=== PATIENT | male | born 1995 | race African-American/Black ===

== ENCOUNTER 2016-10-23 17:59 | Emergency (ER) | payer SELFPAY ==
[~2016-10-23] VITALS: Ht 185.4 cm; Wt 65.0 kg
[~2016-10-23 17:59] MED LIST: NAPR500 PO; PENI500T PO
[2016-10-23 18:02] VITALS: BP 127/62; PULSE 70; RESP 14; TEMP 98; O2SAT 99
[2016-10-23 19:01] VITALS: BP 127/89; PULSE 88; RESP 18; O2SAT 99
--- NOTE | 2016-10-23 19:58 | PD ---
HPI Chief Complaint: Psychiatric Symptoms Time Seen by Provider: 19:48 Travel History International Travel<30 days: No Contact w/Intl Traveler<30days: No Traveled to known affect area: No History of Present Illness HPI This is a 21-year-old male who presents requesting psychiatric evaluation. Reports that 2 weeks ago he used some hallucinogenic drugs with a woman. Afterwards he began having feelings that she was calling him things that he has been afraid of for most of his life. He has been having these lingering feeling since then. He has also been having some paranoia, occasionally he feels like he is being followed. For this reason he presents requesting voluntary psychiatric evaluation. He denies any suicidal or homicidal ideation. He has no other complaints at This time. [facility] Past Medical History Developmental Delay: No Diminished Hearing: No Immunizations Current: Yes Pneumonia: Yes Social History Alcohol Use: Yes (WEEKLY) Tobacco Use: Yes (BLACK AND MILDS 1-2 PER DAY) Substance Use: Yes (MARIJUIANA) Allergies-Medications (Allergen,Severity, Reaction): Coded Allergies: No Known Allergies (Verified , 03/02/16) Reported Meds & Prescriptions Reported Meds & Active Scripts Active Naprosyn (Naproxen) 500 Mg Tab 500 Mg PO Q12HR PRN Pen Vk (Penicillin V Potassium) 500 Mg Tab 500 Mg PO QID 10 Days Review of Systems Except as stated in HPI: all other systems reviewed are Neg Physical Exam Narrative GENERAL: Well-developed well-nourished male in no acute distress. SKIN: Warm and dry. HEAD: Atraumatic. Normocephalic. EYES: Pupils equal and round. No scleral icterus. No injection or drainage. ENT: No nasal bleeding or discharge. Mucous membranes pink and moist. NECK: Trachea midline. No JVD. CARDIOVASCULAR: Regular rate and rhythm. No murmur appreciated. RESPIRATORY: No accessory muscle use. Clear to auscultation. Breath sounds equal bilaterally. GASTROINTESTINAL: Abdomen soft, non-tender, nondistended. Hepatic and splenic margins not palpable. MUSCULOSKELETAL: No obvious deformities. No clubbing. No cyanosis. No edema. NEUROLOGICAL: Awake and alert. No obvious cranial nerve deficits. Motor grossly within normal limits. Normal speech. PSYCHIATRIC: Somewhat anxious in appearance; insight and judgment normal. Data Data Last Documented VS Vital Signs Date Time Temp Pulse Resp B/P Pulse Ox O2 Delivery O2 Flow Rate FiO2 10/23/16 19:01 88 18 127/89 99 Room Air 10/23/16 18:02 98.0 Orders Complete Blood Count With Diff (10/23/16 19:37) Comprehensive Metabolic Panel (10/23/16 19:37) Psych Screen (10/23/16 19:37) Drug Screen, Random Urine (10/23/16 19:37) Alcohol (Ethanol) (10/23/16 19:37) Labs Laboratory Tests Test 10/23/16 20:00 White Blood Count 6.4 TH/MM3 Red Blood Count 5.35 MIL/MM3 Hemoglobin 14.8 GM/DL Hematocrit 45.3 % Mean Corpuscular Volume 84.7 FL Mean Corpuscular Hemoglobin 27.7 PG Mean Corpuscular Hemoglobin 32.7 % Concent Red Cell Distribution Width 13.5 % Platelet Count 251 TH/MM3 Mean Platelet Volume 7.7 FL Neutrophils (%) (Auto) 45.0 % Lymphocytes (%) (Auto) 44.0 % Monocytes (%) (Auto) 8.3 % Eosinophils (%) (Auto) 2.3 % Basophils (%) (Auto) 0.4 % Neutrophils # (Auto) 2.9 TH/MM3 Lymphocytes # (Auto) 2.8 TH/MM3 Monocytes # (Auto) 0.5 TH/MM3 Eosinophils # (Auto) 0.1 TH/MM3 Basophils # (Auto) 0.0 TH/MM3 CBC Comment DIFF FINAL Differential Comment Sodium Level 134 MEQ/L Potassium Level 3.5 MEQ/L Chloride Level 99 MEQ/L Carbon Dioxide Level 30.3 MEQ/L Anion Gap 5 MEQ/L Blood Urea Nitrogen 14 MG/DL Creatinine 1.19 MG/DL Estimat Glomerular Filtration 92 ML/MIN Rate Random Glucose 93 MG/DL Calcium Level 9.0 MG/DL Total Bilirubin 0.3 MG/DL Aspartate Amino Transf 24 U/L (AST/SGOT) Alanine Aminotransferase 19 U/L (ALT/SGPT) Alkaline Phosphatase 61 U/L Total Protein 7.9 GM/DL Albumin 4.2 GM/DL Urine Opiates Screen NEG Urine Barbiturates Screen NEG Urine Amphetamines Screen NEG Urine Benzodiazepines Screen NEG Urine Cocaine Screen NEG Urine Cannabinoids Screen POS Ethyl Alcohol Level LESS THAN 3 MG/DL MDM Medical Decision Making Medical Screen Exam Complete: Yes Emergency Medical Condition: Yes Medical Record Reviewed: Yes Differential Diagnosis Substance induced mood disorder, acute psychosis, schizophrenia, major depressive disorder Narrative Course 21-year-old male presents voluntarily requesting psychiatric evaluation. Mental health screening discussed with the patient. Psychiatric screen ordered. Drug screen positive for cannabinoids. Medically cleared for psychiatric disposition. Diagnosis Primary Impression: ParanBrice Gandara Oct 23, 2016 19:58
[2016-10-23 20:20] LABS: AUTOMATED NEUTROPHIL # 2.9 TH/MM3 (1.8-7.7); BASOPHIL % 0.4 % (0.0-2.0); EOSINOPHIL # 0.1 TH/MM3 (0-0.4); EOSINOPHIL % 2.3 % (0.0-4.0); HEMATOCRIT 45.3 % (39.0-51.0); HEMO FLAGS DIFF FINAL; LYMPHOCYTE # 2.8 TH/MM3 (1.0-4.8); MEAN CELL VOLUME 84.7 FL (80.0-100.0); MEAN CORPUSCULAR HEMOGLOBIN 27.7 PG (27.0-34.0); MEAN CORPUSCULAR HGB CONC 32.7 % (32.0-36.0); MONO % 8.3 % (0.0-8.0); PLATELET COUNT 251 TH/MM3 (150-450); RED BLOOD COUNT 5.35 MIL/MM3 (4.50-5.90); RED CELL DISTRIBUTION WIDTH 13.5 % (11.6-17.2); WHITE BLOOD COUNT 6.4 TH/MM3 (4.0-11.0)
[2016-10-23 20:34] LABS: ANION GAP 5 MEQ/L (5-15); AST (GOT) 24 U/L (15-37); BICARBONATE 30.3 MEQ/L (21.0-32.0); BLOOD UREA NITROGEN 14 MG/DL (7-18); CHLORIDE 99 MEQ/L (98-107); GLOMERULAR FILTRATION RATE 92 ML/MIN (>89); POTASSIUM 3.5 MEQ/L (3.5-5.1); SODIUM (NA) 134 MEQ/L (136-145)
[2016-10-23 20:35] LABS: ALCOHOL LESS THAN 3 MG/DL (0-5); ALT (GPT) 19 U/L (12-78)
[2016-10-23 20:37] LABS: ALKALINE PHOSPHATASE 61 U/L (45-117); TOTAL BILIRUBIN ADULT 0.3 MG/DL (0.2-1.0)
== END 2016-10-23 21:41 | disposition home or self-care (01) ==
LOC: NEPJ 17:59
DX: F22 Delusional disorders (principal); F12.90 Cannabis use, unspecified, uncomplicated; Z72.0 Tobacco use
CPT/HCPCS: 80053; 80307; 85025; 99284

== ENCOUNTER 2016-10-26 08:22 | Emergency (ER) | payer SELFPAY ==
[~2016-10-26] VITALS: Ht 185.4 cm; Wt 66.0 kg
[2016-10-26 08:23] VITALS: BP 126/72; PULSE 86; RESP 16; TEMP 98.5; O2SAT 98
--- NOTE | 2016-10-26 09:23 | PD ---
HPI Chief Complaint: Suicide Ideation/Attempt Time Seen by Provider: 09:15 Travel History International Travel<30 days: No Contact w/Intl Traveler<30days: No Traveled to known affect area: No History of Present Illness HPI 21-year-old male presents emergency Department voluntarily for psych evaluation for feeling paranoid and having occasional thoughts of suicidal and homicidal ideations. He says these feelings and thoughts started 3 weeks ago after taking acid. He has never felt this way before. He denies psych history. Reports visual and auditory hallucinations. Says he'll be sitting in his house and thinks he hears something outside and he looks outside and there is nothing there. He says he sees things and there is nothing there. He does not have a plan to commit suicide. He says he tells himself that killing himself with the selfish. And he feels the same about his homicidal thoughts also. He feels like he wants to blame people for what happening to him but he knows that selfish also. Reports marijuana use. Denies other illicit drug use since taking acid. Reports being recently treated for Chlamydia at [facility]. Has no current medical complaints. No other modifying factors or associated signs and symptoms. PFSH Past Medical History Developmental Delay: No Diminished Hearing: No Genitourinary: Yes (clamidia) Immunizations Current: Yes Pneumonia: Yes Past Surgical History Surgical History: No Previous Surgery Social History Alcohol Use: Yes (WEEKLY) Tobacco Use: Yes (BLACK AND MILDS 1-2 PER DAY) Substance Use: Yes Allergies-Medications (Allergen,Severity, Reaction): Coded Allergies: No Known Allergies (Verified , 10/26/16) Reported Meds & Prescriptions Reported Meds & Active Scripts Active Naprosyn (Naproxen) 500 Mg Tab 500 Mg PO Q12HR PRN Review of Systems Except as stated in HPI: all other systems reviewed are Neg Physical Exam Narrative GENERAL: Well-nourished, well-developed male patient, in no acute distress SKIN: Warm and dry. HEAD: Atraumatic. Normocephalic. EYES: Pupils equal and round. ENT: Mucosa pink and moist. NECK: Supple. Trachea midline. CARDIOVASCULAR: Regular rate and rhythm. No murmur appreciated. RESPIRATORY: No accessory muscle use. Clear to auscultation. Breath sounds equal bilaterally. GASTROINTESTINAL: Abdomen soft, non-tender, nondistended. Hepatic and splenic margins not palpable. Bowel sounds are active 4 quadrants. MUSCULOSKELETAL: No obvious deformities. No clubbing. No cyanosis. No edema. NEUROLOGICAL: Awake and alert. Oriented 3. No obvious cranial nerve deficits. Motor grossly within normal limits. Normal speech. Moves all extremities. 5/5 strength to all extremities. PSYCHIATRIC: No delusional thought processes. No hallucinations. Data Data Last Documented VS Vital Signs Date Time Temp Pulse Resp B/P (MAP) Pulse Ox O2 Delivery O2 Flow Rate FiO2 10/26/16 08:23 98.5 86 16 126/72 (90) 98 Room Air Orders Orders Complete Blood Count With Diff (10/26/16 08:42) Comprehensive Metabolic Panel (10/26/16 08:42) Psych Screen (10/26/16 08:42) Drug Screen, Random Urine (10/26/16 08:42) Alcohol (Ethanol) (10/26/16 08:42) Salicylates (Aspirin) (10/26/16 08:42) Tylenol (Acetaminophen) (10/26/16 08:42) MDM Medical Decision Making Medical Screen Exam Complete: Yes Emergency Medical Condition: Yes Medical Record Reviewed: Yes Differential Diagnosis Paranoia, suicidal ideation, homicidal ideation Narrative Course Patient presents voluntarily for psych evaluation. I did review the medical record and saw the patient was here on October 23, 2016 for the same complaint. Physical examination and vital signs are essentially unremarkable. Patient has no medical complaints to report. Psych screen has been ordered. If the laboratory results are unremarkable, the patient will be medically cleared for psychiatric evaluation and disposition. Diagnosis Primary Impression: Medical clearance for psychiatric admission Condition: Stable Thea Pittman [employer] Oct 26, 2016 09:23
[2016-10-26 09:25] LABS: AUTOMATED NEUTROPHIL # 1.8 TH/MM3 (1.8-7.7); BASOPHIL % 0.9 % (0.0-2.0); EOSINOPHIL # 0.1 TH/MM3 (0-0.4); EOSINOPHIL % 3.2 % (0.0-4.0); HEMATOCRIT 44.6 % (39.0-51.0); HEMO FLAGS DIFF FINAL; LYMPH % 42.3 % (9.0-44.0); LYMPHOCYTE # 1.8 TH/MM3 (1.0-4.8); MEAN CELL VOLUME 84.7 FL (80.0-100.0); MEAN CORPUSCULAR HGB CONC 33.1 % (32.0-36.0); MONO % 12.3 % (0.0-8.0); NEUT % 41.3 % (16.0-70.0); PLATELET COUNT 233 TH/MM3 (150-450); RED BLOOD COUNT 5.27 MIL/MM3 (4.50-5.90); RED CELL DISTRIBUTION WIDTH 13.4 % (11.6-17.2); WHITE BLOOD COUNT 4.3 TH/MM3 (4.0-11.0)
[2016-10-26 09:41] LABS: ANION GAP 9 MEQ/L (5-15); AST (GOT) 19 U/L (15-37); BICARBONATE 27.4 MEQ/L (21.0-32.0); BLOOD UREA NITROGEN 15 MG/DL (7-18); CHLORIDE 103 MEQ/L (98-107); GLOMERULAR FILTRATION RATE 101 ML/MIN (>89); POTASSIUM 3.5 MEQ/L (3.5-5.1); SODIUM (NA) 139 MEQ/L (136-145)
[2016-10-26 09:42] LABS: ALT (GPT) 19 U/L (12-78)
[2016-10-26 09:44] LABS: ALKALINE PHOSPHATASE 59 U/L (45-117); TOTAL BILIRUBIN ADULT 0.4 MG/DL (0.2-1.0)
[2016-10-26 09:49] LABS: ACETAMINOPHEN LESS THAN 2.0 MCG/ML (10.0-30.0); ALCOHOL LESS THAN 3 MG/DL (0-5)
--- NOTE | 2016-10-26 14:39 | PD ---
History of Present Illness Chief Complaint: Suicide Ideation/Attempt Time Seen by Provider: 12:30 Travel History International Travel<30 Days: No Contact w/Intl Traveler<30days: No Known affected area: No Legal Status Legal Status: Voluntary History of Present Illness: This is a 21-year-old male who presents for voluntary psychiatric examination due to feelings of paranoia over the last 3 weeks. Apparently, the patient used acid 3 weeks ago and has been having paranoia as well as auditory and visual hallucinations, intermittently, since that time. He indicates he did not have these experiences prior to using acid. He described hearing things outside his house and sees there is nothing present. He also reports seeing things occasionally but then looks and notes nothing is there. He admits to occasional suicidal and homicidal ideation, but states he has no plan to harm himself or others. He feels killing himself would be selfish and he would not do so. He feels he wants to blame others for what is happening to him but knows that is inappropriate as well. Since his use of acid, he also reports marijuana use but denies other illicit drug use. This physician offered to treat the patient's intermittent symptoms of visual and auditory hallucinations and reported paranoia. However, the patient declined any prescription medicine. The patient did not appear to be experiencing any hallucinations, either visual or auditory at the time of this examination. He did not appear paranoid and was accepting help from his sister. However, when this physician offered to send him to [facility] for further drug treatment, the patient declined. This physician offered to provide transportation in the form of a bus pass, to [facility] but again the patient declined. In fact, the patient twice requested this physician and the nurse (Justyn) leave his room. As this physician also reviewed the patient's past 2 evaluations by emergency room personnel and noted a lack of clinically objective evidence of psychosis, the patient was felt to be competent. As he therefore requested this physician and nurse to leave his room, and he had the assistance of his sister, we complied. [facility] Past Medical History Developmental Delay: No Diminished Hearing: No Genitourinary: Yes (clamidia) Immunizations Current: Yes Pneumonia: Yes Past Surgical History Surgical History: No Previous Surgery Psychiatric History Psychiatric History Hx Psychiatric Treatment: PATIENT DENIES History of Inpatient Treatment: No Social History Hx Alcohol Use: Yes (WEEKLY) Hx Tobacco Use: Yes (BLACK AND MILDS 1-2 PER DAY) Hx Substance Use: Yes Substance Use Type: Marijuana Hx of Substance Use Treatment: No Allergies-Medications (Allergen,Severity, Reaction): Coded Allergies: No Known Allergies (Verified , 10/26/16) Reported Meds & Prescriptions Reported Meds & Active Scripts Active Naprosyn (Naproxen) 500 Mg Tab 500 Mg PO Q12HR PRN Review of Systems Except as stated in HPI: all other systems reviewed are Neg Psychiatric: COMPLAINS OF: Hallucinations, Suicidal Ideation, Homicidal Ideation Exam Alert: Yes Lexa: Person, Place, Date, Situation Mood: Calm Affect: Appropriate Speech: Clear, Logical Eye Contact: Normal Memory Intact: Immediate, Recent, Remote Insight/Judgement Adequate. MDM Medical Decision Making Medical Record Reviewed: Yes Assessment/Plan 21-year-old male who presents voluntarily after taking acid approximately 3 weeks ago. History of intermittent auditory and visual hallucinations, paranoia , suicidal and homicidal ideation, and continued marijuana use. At the time of this examination, although this physician offered treatment to the patient in the form of medication management and referral to [facility] for further evaluation and treatment, the patient declined. As there appeared to be no significant objective clinical evidence of psychotic thinking at the time of this evaluation and the patient denied suicidal plan or intent, both today and 3 days ago, the patient was felt to be competent. As the patient requested twice for this physician and his nurse to leave the room, we did so. The patient does not meet criteria for Hendrickson act or involuntary psychiatric hospitalization. He was therefore discharged home with his sister. Orders Orders Complete Blood Count With Diff (10/26/16 08:42) Comprehensive Metabolic Panel (10/26/16 08:42) Psych Screen (10/26/16 08:42) Drug Screen, Random Urine (10/26/16 08:42) Alcohol (Ethanol) (10/26/16 08:42) Salicylates (Aspirin) (10/26/16 08:42) Tylenol (Acetaminophen) (10/26/16 08:42) Results Vital Signs Date Time Temp Pulse Resp B/P (MAP) Pulse Ox O2 Delivery O2 Flow Rate FiO2 10/26/16 11:40 10/26/16 08:23 98.5 86 16 126/72 (90) 98 Room Air Laboratory Tests Test 10/26/16 08:55 White Blood Count 4.3 Red Blood Count 5.27 Hemoglobin 14.7 Hematocrit 44.6 Mean Corpuscular Volume 84.7 Mean Corpuscular Hemoglobin 28.0 Mean Corpuscular Hemoglobin Concent 33.1 Red Cell Distribution Width 13.4 Platelet Count 233 Mean Platelet Volume 7.7 Neutrophils (%) (Auto) 41.3 Lymphocytes (%) (Auto) 42.3 Monocytes (%) (Auto) 12.3 Eosinophils (%) (Auto) 3.2 Basophils (%) (Auto) 0.9 Neutrophils # (Auto) 1.8 Lymphocytes # (Auto) 1.8 Monocytes # (Auto) 0.5 Eosinophils # (Auto) 0.1 Basophils # (Auto) 0.0 CBC Comment DIFF FINAL Differential Comment Blood Urea Nitrogen 15 Creatinine 1.10 Random Glucose 91 Total Protein 7.7 Albumin 4.1 Calcium Level 9.5 Alkaline Phosphatase 59 Aspartate Amino Transf (AST/SGOT) 19 Alanine Aminotransferase (ALT/SGPT) 19 Total Bilirubin 0.4 Sodium Level 139 Potassium Level 3.5 Chloride Level 103 Carbon Dioxide Level 27.4 Anion Gap 9 Estimat Glomerular Filtration Rate 101 Salicylates Level 3.3 Acetaminophen Level LESS THAN 2.0 Ethyl Alcohol Level LESS THAN 3 Diagnosis Primary Impression: Psychoactive substance abuse Departure Forms: Tests/Procedures Patient Instructions: General Instructions Disposition: 01 DISCHARGE HOME Condition: Stable Emilio Kwon MD Oct 26, 2016 14:39
== END 2016-10-26 11:40 | disposition home or self-care (01) ==
LOC: NEPD 08:22
DX: F19.90 Other psychoactive substance use, unspecified, uncomplicated (principal); F22 Delusional disorders; F12.10 Cannabis abuse, uncomplicated; F17.290 Nicotine dependence, other tobacco product, uncomplicated
CPT/HCPCS: 80053; 80307; 85025; 99283